=== PATIENT | male | born 1990 | race Two or more races ===

== ENCOUNTER 2021-06-16 17:34 | Emergency (ER) | payer OTHER ==
[~2021-06-16] VITALS: Ht 170.2 cm; Wt 77.5 kg
[2021-06-16] MEDS ORDERED: mirtazapine (17:57)
[2021-06-16] MEDS ORDERED: lexapro (17:57)
[2021-06-16] MEDS ORDERED: prozac (17:57)
[2021-06-16] MEDS ORDERED: SODIUM CHLORIDE 0.9% 1,000 ML IV ONE (18:15)
[2021-06-16 19:10] LABS: BASOPHILS % 0.9 % (0.0-2.0); EOSINOPHILS % 0.1 % (0.0-5.0); HEMATOCRIT. 42.9 % (42.0-52.0); HEMOGLOBIN. 14.2 g/dL (14.0-18.0); LYMPHOCYTES % 10.5 % (20.0-50.0); MEAN CORPUSCULAR HEMOGLOBIN 22.9 pg (28.0-32.0); MEAN CORPUSCULAR VOLUME 69.3 fL (80.0-94.0); MEAN PLATELET VOLUME 8.7 fl (7.4-10.4); MONOCYTES % 5.5 % (2.0-8.0); PLATELET 261 x1000/uL (130-400); RED BLOOD CELL COUNT 6.19 mill/uL (4.7-6.1); RED CELL DISTRIBUTION WIDTH 15.4 % (11.6-14.6)
[2021-06-16 19:15] LABS: CHLORIDE 111 mEq/L (98-107)
[2021-06-16 20:41] LABS: PLATELET ESTIMATE NORMAL
[2021-06-16 21:30] VITALS: BP 133/81
== END 2021-06-16 21:36 | disposition home or self-care (01) ==
LOC: ER 17:34
DX: F41.0 Panic disorder [episodic paroxysmal anxiety] (principal); R07.89 Other chest pain; R03.0 Elevated blood-pressure reading, without diagnosis of hypertension
CPT/HCPCS: 36415; 71045; 80048; 84484; 85025; 93005; 96360; 99285; J7030; J7040; Z7610

== ENCOUNTER 2021-06-19 12:27 | Emergency (ER) | payer OTHER ==
[~2021-06-19] VITALS: Ht 177.8 cm; Wt 77.0 kg
[~2021-06-19 12:27] MED LIST: lexapro; mirtazapine; prozac
[2021-06-19] MEDS ORDERED: HYDROXYZINE 25MG TABLET PO ONE (13:15)
[2021-06-19] MEDS ORDERED: HYDR-3782 MT (13:55)
[2021-06-19 14:02] LABS: *AMPHETAMINES SCREEN URINE NEGATIVE (NEGATIVE); *BARBITURATES SCREEN URINE NEGATIVE (NEGATIVE); CANNABINOID URINE SCREEN NEGATIVE (NEGATIVE)
[2021-06-19 14:03] LABS: *BENZODIAZEPINES SCREEN URINE NEGATIVE (NEGATIVE); *COCAINE SCREEN URINE NEGATIVE (NEGATIVE); METHADONE URINE SCREEN NEGATIVE (NEGATIVE); OPIATES URINE SCREEN NEGATIVE (NEGATIVE); PHENCYCLIDINE URINE SCREEN NEGATIVE (NEGATIVE)
[2021-06-19 15:27] VITALS: BP 110/56
== END 2021-06-19 17:05 | disposition home or self-care (01) ==
LOC: ER 12:27
DX: F41.9 Anxiety disorder, unspecified (principal); Z00.00 Encounter for general adult medical examination without abnormal findings
CPT/HCPCS: 80305; 93005; 99284